=== PATIENT | female | born 1950 | race Native Hawaiian/Other Pacific Islander ===

== ENCOUNTER 2016-06-24 21:59 | Emergency (ER) | payer MEDICARE ==
[2016-06-24 21:59] VITALS: BMI 24.7
[2016-06-24 22:20] VITALS: TEMP 97.8; O2SAT 100
[2016-06-24 22:49] LABS: BASO # 0.1 K/uL (0.0-0.2); BASO % 0.7 % (0.0-2.0); EOS # 0.1 K/uL (0.0-0.7); EOS % 1.3 % (0.0-4.0); HEMATOCRIT 40.6 % (34.0-47.0); LYMPH # 2.4 K/uL (1.0-4.3); LYMPH % 33.8 % (20.0-40.0); MEAN CELL VOLUME 87.3 fL (81.0-99.0); MEAN CORPUSCULAR HEMOGLOBIN 28.7 pg (27.0-31.0); MEAN CORPUSCULAR HGB CONC 32.9 g/dL (33.0-37.0); MEAN PLATELET VOLUME 7.2 fL (7.2-11.7); MONO # 0.5 K/uL (0.0-0.8); MONO % 6.9 % (0.0-10.0); RED CELL DISTRIBUTION WIDTH 13.3 % (11.5-14.5); WHITE BLOOD COUNT 7.2 K/uL (4.8-10.8)
[2016-06-24 22:59] LABS: CHLORIDE 95 mmol/L (98-107); POTASSIUM 3.4 mmol/L (3.6-5.2); SODIUM 138 mmol/L (132-148)
[2016-06-24 23:01] LABS: BILIRUBIN,TOTAL 0.5 mg/dL (0.2-1.3); GFR AFRICAN-AMERICAN > 60
[2016-06-24 23:02] LABS: ALB/GLOB RATIO 1.2 (1.0-2.1); ALKALINE PHOSPHATASE 68 U/L (38-126); ALT/SGPT 32 U/L (9-52); AST/SGOT 37 U/L (14-36); BLOOD UREA NITROGEN 16 mg/dL (7-17); CARBON DIOXIDE 28 mmol/L (22-30); GLUCOSE,RANDOM 111 mg/dL (65-105); TOTAL PROTEIN 8.3 g/dL (6.3-8.3)
[2016-06-24 23:03] LABS: CALCIUM 9.1 mg/dl (8.6-10.4)
[2016-06-24 23:16] VITALS: BP 151/75; PULSE 92; RESP 14
--- NOTE | 2016-06-24 23:40 | C.PDOC ---
History Of Present Illness 65 year old patient, with a past medical history of anxiety, arthritis, and osteoporosis, presents to the ED complaining of dizziness and palpitations. Patient states her symptoms are similar to panic attacks. She takes 0.25 mg of Xanax daily. She didn't take any today. Patient denies nausea, vomiting, abdominal pain, diarrhea, headache, numbness, weakness, or back pain. Time Seen by Provider: 06/24/16 22:33 Chief Complaint (Nursing): Dizziness/Lightheaded History Per: Patient History/Exam Limitations: no limitations Onset/Duration Of Symptoms: Hrs (earlier today) Current Symptoms Are (Timing): Still Present Quality: Other Severity: Mild Pain Scale Rating Of: 3 Associated Symptoms: Dizziness, Anxiety Recent travel outside of the [place]: No Past Medical History Reviewed: Historical Data, Nursing Documentation, Vital Signs Vital Signs: Last Vital Signs Temp 97.8 F 06/24/16 22:17 Pulse 92 H 06/24/16 23:15 Resp 14 06/24/16 23:15 BP 151/75 H 06/24/16 23:15 Pulse Ox 100 06/24/16 23:40 - Medical History PMH: Anxiety, Arthritis, Osteoporosis Family History: States: Unknown Family Hx - Social History Hx Tobacco Use: No Hx Alcohol Use: No Hx Substance Use: No - Immunization History Hx Tetanus Toxoid Vaccination: No Hx Influenza Vaccination: Yes Hx Pneumococcal Vaccination: No Review Of Systems Except As Marked, All Systems Reviewed And Found Negative. Constitutional: Negative for: Fever Cardiovascular: Positive for: Palpitations Respiratory: Positive for: Shortness of Breath Gastrointestinal: Negative for: Nausea, Vomiting, Abdominal Pain, Diarrhea Musculoskeletal: Negative for: Back Pain Neurological: Positive for: Dizziness. Negative for: Weakness, Numbness, Headache Psych: Positive for: Anxiety Physical Exam - Physical Exam Appears: Non-toxic, Other (anxious, paranoid) Skin: Warm, Dry Head: Atraumatic, Normacephalic Eye(s): bilateral: Normal Inspection, PERRL, EOMI Ear(s): Bilateral: Normal Neck: Normal ROM, Supple Chest: Symmetrical Cardiovascular: Rhythm Regular (tachycardic) Respiratory: Normal Breath Sounds, No Rales, No Rhonchi, No Wheezing Gastrointestinal/Abdominal: Soft, No Tenderness Back: Normal Inspection, No CVA Tenderness Extremity: Normal ROM Neurological/Psych: Oriented x3, Normal Speech, Normal Cognition Gait: Steady ED Course And Treatment - Laboratory Results Result Diagrams: 06/24/16 22:45 06/24/16 22:45 Lab Interpretation: Normal (trop/bnp neg.) ECG: Interpreted By Me ECG Rhythm: Sinus Tachycardia ECG Interpretation: Normal Rate From EC (bpm) O2 Sat by Pulse Oximetry: 100 (RA) Pulse Ox Interpretation: Normal - Radiology CXR: Interpreted by Me CXR Interpretation: Yes: No Acute Disease Progress Note: Plan: EKG, Labs, Chest XR, Xanax Reevaluation Time: 23:38 Reassessment Condition: Improved (symptoms much relieved, pt and family wish to discuss with PMD.) - Physician Consult Information Outcome Of Conversation: 2330: d/w Dr. Vashti reese to d/c pt home, no new meds. She feels this is typical anxiety/panic attack as well Medical Decision Making Medical Decision Making: anxiety exacerbation. recommend long-term non-addictive anxiety/panic meds Disposition Doctor Will See Patient In The: Office Counseled Patient/Family Regarding: Studies Performed, Diagnosis - Disposition Referrals: Floresita Ansari MD [Staff Provider] - Disposition: HOME/ ROUTINE Disposition Time: 23:39 Condition: GOOD Additional Instructions: consider long-term non-addictive anxiety/panic medications Continue Xanax 0.25 mg every 4-6 hours as needed for panic/anxiety- as prescribed by Dr. Ansari. Instructions: Palpitations (ED), Anxiety (ED) - Clinical Impression Clinical Impression: Palpitations, Anxiety - Scribe Statement The provider has reviewed the documentation as recorded by the Jose Antonioibranjeet Danielle Provider Attestation: All medical record entries made by the Scribe were at my direction and personally dictated by me. I have reviewed the chart and agree that the record accurately reflects my personal performance of the history, physical exam, medical decision making, and the department course for this patient. I have also personally directed, reviewed, and agree with the discharge instructions and disposition.
--- NOTE | 2016-06-25 08:26 | RAD ---
PROCEDURE: CHEST RADIOGRAPH, 1 VIEW HISTORY: Shortness of breath COMPARISON: None available. FINDINGS: LUNGS: Chronic interstitial lung markings. Upper lobe granulomatous changes. PLEURA: No pneumothorax or pleural fluid seen. CARDIOVASCULAR: Normal. OSSEOUS STRUCTURES: No significant abnormalities. VISUALIZED UPPER ABDOMEN: Normal. OTHER FINDINGS: None. IMPRESSION: Chronic interstitial lung markings. Upper lobe granulomatous changes.
--- NOTE | 2016-06-27 19:48 | CARD ---
APPROVED REPORT EKG Measurement Heart [id number] <Conclusion> Sinus tachycardia Possible Left atrial enlargement Borderline ECG
== END 2016-06-24 23:50 | disposition home or self-care (01) ==
LOC: C.ER 21:59
DX: F41.9 Anxiety disorder, unspecified (principal); R00.2 Palpitations

== ENCOUNTER 2016-10-03 21:36 | Emergency (ER) | payer MEDICARE ==
[2016-10-03 21:36] VITALS: BMI 24.7
--- NOTE | 2016-10-03 22:21 | C.PDOC ---
History Of Present Illness 66 year old female with a Hx of anxiety who presents to the ER with a complaint of difficulty breathing. Patient states she is currently on trazodone for her anxiety; she also reports she is on metoprolol for palpitations which was given to her by a unknown barber instructor, however, she states Dr. Rocha(barber instructor ) advised her to only take it as needed. Patient states she feels this is not her anxiety because it is lasting longer than her usual anxiety attacks. Denies chest pain, nausea, or vomiting. Time Seen by Provider: 10/03/16 22:06 Chief Complaint (Nursing): Chest Pain History Per: Patient History/Exam Limitations: no limitations Onset/Duration Of Symptoms: Hrs Current Symptoms Are (Timing): Still Present Associated Symptoms: Dyspnea. denies: Nausea Modifying Factors: None Exacerbating Factors: None Alleviating Factors: None Recent travel outside of the [place]: No Past Medical History Reviewed: Historical Data, Nursing Documentation, Vital Signs Vital Signs: Last Vital Signs Temp 97.5 F L 10/03/16 21:56 Pulse 83 10/03/16 22:56 Resp 20 10/03/16 22:56 BP 161/83 H 10/03/16 22:56 Pulse Ox 100 10/03/16 23:02 - Medical History PMH: Anxiety, Arthritis, Osteoporosis Surgical History: No Surg Hx Family History: States: Unknown Family Hx - Social History Hx Tobacco Use: No Hx Alcohol Use: No Hx Substance Use: No - Immunization History Hx Tetanus Toxoid Vaccination: No Hx Influenza Vaccination: Yes Hx Pneumococcal Vaccination: No Review Of Systems Cardiovascular: Negative for: Chest Pain Respiratory: Positive for: Shortness of Breath Gastrointestinal: Negative for: Nausea, Vomiting Psych: Positive for: Anxiety Physical Exam - Physical Exam Appears: Non-toxic, No Acute Distress Skin: Normal Color, Warm, Dry Head: Atraumatic, Normacephalic Oral Mucosa: Moist Chest: Symmetrical, No Tenderness Cardiovascular: Rhythm Regular, No Murmur Respiratory: Normal Breath Sounds, No Rales, No Rhonchi, No Wheezing Neurological/Psych: Oriented x3, Normal Speech, Normal Cognition ED Course And Treatment - Laboratory Results Result Diagrams: 10/03/16 22:59 10/03/16 22:59 O2 Sat by Pulse Oximetry: 100 (Room air) Pulse Ox Interpretation: Normal Medical Decision Making Medical Decision Making: Plan: * EKG * Blood work * CXR * Ativan CE unremarkable. Patient feeling much better Disposition Counseled Patient/Family Regarding: Studies Performed, Diagnosis, Need For Followup - Disposition Disposition: HOME/ ROUTINE Disposition Time: 00:33 Condition: STABLE Additional Instructions: Follow up with your doctor. Return to the Emergency Department with any further complaints. Forms: General Discharge Instructions - POA Present On Arrival: None - Clinical Impression Clinical Impression: Chest pain, Anxiety - Scribe Statement The provider has reviewed the documentation as recorded by the Scribranjeet Taylor All medical record entries made by the Jose Antonioibranjeet were at my direction and personally dictated by me. I have reviewed the chart and agree that the record accurately reflects my personal performance of the history, physical exam, medical decision making, and the department course for this patient. I have also personally directed, reviewed, and agree with the discharge instructions and disposition.
[2016-10-03 22:57] VITALS: RESP 20
[2016-10-03 23:12] LABS: ALBUMIN 4.3 g/dL (3.5-5.0)
[2016-10-03 23:13] LABS: BASO % 0.5 % (0.0-2.0); EOS # 0.1 K/uL (0.0-0.7); EOS % 1.3 % (0.0-4.0); HEMOGLOBIN 12.9 g/dL (11.0-16.0); LYMPH # 1.9 K/uL (1.0-4.3); LYMPH % 27.4 % (20.0-40.0); MEAN CELL VOLUME 89.1 fL (81.0-99.0); MEAN CORPUSCULAR HEMOGLOBIN 29.1 pg (27.0-31.0); MEAN CORPUSCULAR HGB CONC 32.6 g/dL (33.0-37.0); MEAN PLATELET VOLUME 7.6 fL (7.2-11.7); MONO # 0.5 K/uL (0.0-0.8); MONO % 7.8 % (0.0-10.0); NEUT # 4.4 K/uL (1.8-7.0); RBC 4.44 Mil/uL (3.80-5.20); RED CELL DISTRIBUTION WIDTH 13.8 % (11.5-14.5)
[2016-10-03 23:15] LABS: AST/SGOT 37 U/L (14-36); BLOOD UREA NITROGEN 11 mg/dL (7-17); GFR AFRICAN-AMERICAN > 60; GFR NON-AFRICAN AMERICAN > 60
[2016-10-03 23:16] LABS: ALT/SGPT 24 U/L (9-52); CALCIUM 9.3 mg/dl (8.6-10.4)
[2016-10-03 23:24] LABS: B-TYPE NATRIURETIC PEPTIDE 34.1 pg/mL (0-900)
[2016-10-04 00:54] VITALS: BP 129/78; PULSE 78; TEMP 97.8; O2SAT 98
--- NOTE | 2016-10-04 09:24 | RAD ---
PROCEDURE: CHEST RADIOGRAPH, 1 VIEW HISTORY: chest pain COMPARISON: 06/24/2016 FINDINGS: LUNGS: Biapical pleural thickening with upper lobe granulomatous changes. Diffuse increased interstitial lung markings. Punctate nodular density at the right costophrenic angle may represent vessel on end versus small nodule and or granuloma. PLEURA: No pneumothorax or pleural fluid seen. CARDIOVASCULAR: Normal. OSSEOUS STRUCTURES: No significant abnormalities. VISUALIZED UPPER ABDOMEN: Normal. OTHER FINDINGS: None. IMPRESSION: Biapical pleural thickening with upper lobe granulomatous changes. Diffuse increased interstitial lung markings. Punctate nodular density at the right costophrenic angle may represent vessel on end versus small nodule and or granuloma.
--- NOTE | 2016-10-04 17:05 | CARD ---
APPROVED REPORT EKG Measurement Heart [id number] <Conclusion> Normal sinus rhythm Normal ECG
== END 2016-10-04 00:54 | disposition home or self-care (01) ==
LOC: C.ER 21:36
DX: F41.9 Anxiety disorder, unspecified (principal); R07.9 Chest pain, unspecified

== ENCOUNTER 2017-03-18 07:48 | Day surgery (SDC) | payer MEDICARE ==
[2017-02-02 14:10] VITALS: BMI 24.9
[2017-03-18 08:55] VITALS: O2SAT 100
[2017-03-18] MEDS ORDERED: Propofol 10 mg/ml Inj (20 ML) ONE (09:23)
--- NOTE | 2017-03-18 09:28 | CP.SDSHP ---
Same Day Surgery H & P - History Proposed Procedure: colonoscopy Pre-Op Diagnosis: Serrated adenoma with possible incomplete removal - Previous Medical/Surgical History Endocrine/Metabolic: Thyroid Disease Neuro: Backaches, Other (anxiety, panic attacks) Misc: Other (colon polyps, osteoporosis, ) Previous Surgical History: thyroidectomy. bunyon left - Allergies Allergies: Allergies No Known Allergies Allergy (Verified 03/18/17 08:29) - Physical Exam Vital Signs: Vital Signs 03/18/17 03/18/17 08:40 09:04 Temperature 97.8 F Pulse Rate 80 80 Respiratory 20 Rate Blood Pressure 168/77 H O2 Sat by Pulse 100 Oximetry Mental Status: Alert & Oriented x3 Neuro: WNL Heart: WNL Lungs: WNL GI: WNL - Impression Impression: serrated adenoma with possible incomplete removal Pt. Evaluated Today:Candidate for Anesthesia & Procedure: Yes - Date & Time Date: 03/18/17 Time: 09:30 Short Stay Discharge - Short Stay Discharge Admitting Diagnosis/Reason for Visit: P/H COLON CANCER / COLON NEOPLASM Disposition: HOME/ ROUTINE
[2017-03-18] MEDS ORDERED: Lactated Ringer's 500 ML IV SCH (09:30)
[2017-03-18 10:15] VITALS: TEMP 98
[2017-03-18 11:38] VITALS: BP 125/65; PULSE 86; RESP 16
== END 2017-03-18 11:32 | disposition home or self-care (01) ==
LOC: C.ENDO 07:48
PROVIDERS: ATTEND Internal Medicine Gastroenterology
DX: D12.0 Benign neoplasm of cecum (principal); Z86.010 Personal history of colon polyps; K64.8 Other hemorrhoids
CPT/HCPCS: 45388; 88305; J2001; J2704; J7120